=== PATIENT | female | born 1980 | race African-American/Black ===

== ENCOUNTER 2018-09-27 03:15 | Emergency (ER) | payer BC ==
[2018-09-27] MEDS: ONDANSETRON 4 MG INJ IV (03:18)
[2018-09-27] MEDS: morphine 4 MG/ML VIAL IV (03:18)
[2018-09-27 03:42] LABS: ADD MAN DIFF? NO
[2018-09-27] MEDS: SOD CHLORIDE 0.9% 500 ML IV (03:43)
[2018-09-27 03:45] LABS: BASOPHILS % 0.7 % (0.0-2.0); EOSINOPHILS # 0.1 10^3/ul (0.0-0.5); EOSINOPHILS % 2.2 % (0.0-7.0); HEMATOCRIT 36.4 % (37.0-47.0); LYMPHOCYTES # 2.7 10^3/ul (0.8-2.9); LYMPHOCYTES % 45.4 % (15.0-51.0); MEAN CORPUSCULAR HEMOGLOBIN 30.1 pg (29.0-33.0); MEAN CORPUSCULAR VOLUME 91.2 fl (82.0-101.0); MEAN PLATELET VOLUME 11.6 fl (7.4-10.4); MONOCYTE # 0.5 10^3/ul (0.3-0.9); MONOCYTES % 9.1 % (0.0-11.0); NEUTROPHIL # 2.5 10^3/ul (1.6-7.5); NEUTROPHILS % 42.4 % (39.0-77.0); PLATELET COUNT 192 10^3/UL (140-415); RED BLOOD COUNT 3.99 10^6/ul (4.20-5.40); RED CELL DISTRIBUTION WIDTH 14.1 % (11.5-14.5)
[2018-09-27 03:45] LABS: WHITE BLOOD COUNT 5.9 10^3/ul (4.8-10.8)
[2018-09-27 04:03] LABS: ALANINE AMINOTRANSFERASE 13 IU/L (13-69); ALBUMIN 4.2 g/dl (3.3-4.9); ALBUMIN/GLOBULIN RATIO 1.07; ALKALINE PHOSPHATASE 69 IU/L (42-121); ANION GAP 9 (5-13); ASPARTATE AMINO TRANSFERASE 26 IU/L (15-46); BILIRUBIN,INDIRECT 0.4 mg/dl (0-1.1); BILIRUBIN,TOTAL 0.4 mg/dl (0.2-1.3); BLOOD UREA NITROGEN 14 mg/dl (7-20); CARBON DIOXIDE 25 mmol/L (21-31); CHLORIDE 104 mmol/L (97-110); CREATININE 0.86 mg/dl (0.44-1.00); Estimated GFR > 60 mL/min (>60); GLUCOSE 103 mg/dl (70-220); POTASSIUM 4.3 mmol/L (3.5-5.1); SODIUM 138 mmol/L (135-144); TOTAL PROTEIN 8.1 g/dl (6.1-8.1)
[2018-09-27 04:04] LABS: INR 1.01; PROTIME 13.4 Sec (11.9-14.9)
[2018-09-27 04:05] LABS: PARTIAL THROMBOPLASTIN TIME 21.5 Sec (23.0-35.0)
[2018-09-27 04:15] LABS: B-TYPE NATRIURETIC PEPTIDE 53 PG/ML (0-125); TROPONIN-I < 0.012 ng/ml (0.000-0.120)
[2018-09-27] MEDS ORDERED: SOD CHLORIDE 0.9% 100 ML (04:18)
[2018-09-27] MEDS ORDERED: IOHEXOL 100 ML (04:18)
== END 2018-09-27 05:21 | disposition home or self-care (01) ==
LOC: E/R 03:15
DX: R07.89 Other chest pain (principal)
CPT/HCPCS: 36415; 71045; 71275; 80053; 83880; 84484; 85025; 85610; 85730; 93005; 99285-25